=== PATIENT | female | born 1955 | race Caucasian/White ===

== ENCOUNTER → 2016-12-29 | Outpatient (CLI) | payer BC ==
--- NOTE | 2016-12-29 15:20 | PCVCIMAG ---
APPROVED REPORT Study performed: 12/29/2016 14:02:44 EXAM: Comprehensive 2D, Doppler, and color-flow Echocardiogram Patient Location: Echo lab Status: routine BSA: 1.41 HR: 71 bpmBP: 100/64 mmHg Rhythm: NSR Other Information Study Quality: Adequate Indications Dyspnea Palpitations lightheadedness 2D Dimensions LVEF(%): 62.75 (>50%) IVSd: 11.71 (7-11mm) LVDd: 34.70 mm PWd: 11.74 (7-11mm) LVDs: 23.22 (25-40mm) Left Atrium: 33.09 (27-40mm) Aortic Root: 26.79 mm LV Single Plane 4CH: 59.40 % LV Single Plane 2CH: 66.34 %Chin's LVEF: 62.87 % Biplane EF: 62.5 % Volumes Left Atrial Volume (Systole) Single Plane 4CH: 35.14 mLSingle Plane 2CH: 37.36 mL LA ESV Index: 29.00 mL/m2 Aortic Valve AoV Peak Rashi.: 1.27 m/s AO Peak Gr.: 6.43 mmHgLVOT Max P.59 mmHg LVOT Max V: 1.18 m/s Mitral Valve E/A Ratio: 0.8 MV Decel. Time: 250.43 ms MV E Max Rashi.: 0.86 m/s MV A Rashi.: 1.14 m/s IVRT: 100.35 ms Pulmonary Valve PV Peak Rashi.: 0.95 m/sPV Peak Gr.: 3.61 mmHg Pulmonary Vein P Vein S: 0.26 m/sP Vein A: 0.27 m/s P Vein D: 0.35 m/sP Vein A Dur.: 124.6 msec P Vein S/D Ratio: 0.74 Tricuspid Valve TR Peak Rashi.: 2.55 m/s TR Peak Gr.: 26.05 mmHg Left Ventricle The left ventricle is normal size. There is normal LV segmental wall motion. There is normal left ventricular wall thickness. Left ventricular systolic function is normal. The left ventricular ejection fraction is within the normal range. LVEF is 60-65%. Grade I - abnormal relaxation pattern. Right Ventricle The right ventricle is normal size. The right ventricular systolic function is normal. Atria The left atrium size is normal. Right atrium is moderately dilated. Aortic Valve The aortic valve is normal in structure. No aortic regurgitation is present. There is no aortic valvular stenosis. Mitral Valve The mitral valve is normal in structure. Mild mitral regurgitation. No evidence of mitral valve stenosis. Tricuspid Valve The tricuspid valve is normal in structure. Mild to moderate tricuspid regurgitation with PAP of 36 mmHg. Pulmonic Valve The pulmonary valve is normal in structure. There is no pulmonic valvular regurgitation. Great Vessels The aortic root is normal in size. IVC is normal in size and collapses with >50% inspiration Pericardium There is no pericardial effusion. <Conclusion> Left ventricular systolic function is normal. Grade I - abnormal relaxation pattern. The right ventricle is normal size. The left atrium size is normal. Right atrium is moderately dilated. The aortic valve is normal in structure. Mild mitral regurgitation. Mild to moderate tricuspid regurgitation with PAP of 36 mmHg. There is no pericardial effusion.
--- NOTE | 2016-12-29 16:39 | PCVCIMAG ---
APPROVED REPORT Patient Location: Echo lab Room #: Stress Nurse: Ana M Zabala RN Indications- Palpitations, dyspnea, lightheadedness. The patient exercised according to the Tony protocol for 12:39 mins; achieving a work level of 15.7 METS. The resting heart rate of 65 bpm nikolay to a maximal heart rate of 150 bpm. This value represents 93% of the maximal, age-predicted heart rate. The resting blood pressure of 100/64 mmHg, nikolay to a maximum of 148/78 mmHg. The exercise test was stopped due to fatigue. No symptoms with exercise. Conclusion Clinical response, nonischemic. ECG response, nonischemic. Exercise capacity, superior. Arrhythmia, none.
== END | disposition home or self-care (01) ==
LOC: PCVCIMAG 13:59
PROVIDERS: ATTEND Internal Medicine Cardiovascular Disease
DX: I08.1 Rheumatic disorders of both mitral and tricuspid valves (principal); I49.8 Other specified cardiac arrhythmias; Z79.899 Other long term (current) drug therapy; Z87.891 Personal history of nicotine dependence
CPT/HCPCS: 93005; 93017; 93306; G0463